=== PATIENT | female | born 1960 | race Caucasian/White ===

== ENCOUNTER → 2023-05-30 06:17 | Day surgery (SDC) | payer OTHER, SELFPAY | LOC: SDS 06:17 | PROVIDERS: ATTENDING PHYSICIAN Orthopaedic Surgery | DX: M75.102 Unspecified rotator cuff tear or rupture of left shoulder, not specified as traumatic (principal); Z53.8 Procedure and treatment not carried out for other reasons | CPT/HCPCS: 29805 ==